=== PATIENT | male | born 1945 | race Caucasian/White ===

== ENCOUNTER → 2017-09-15 16:58 | Outpatient (CLI) | payer MEDICARE, SELFPAY | PROVIDERS: Family Provider Preventive Medicine Occupational Medicine; PCP Preventive Medicine Occupational Medicine; Visit Provider Otolaryngology Otolaryngology/Facial Plastic Surgery | DX: J32.9 Chronic sinusitis, unspecified (principal); J02.9 Acute pharyngitis, unspecified | CPT/HCPCS: 87070 ==

== ENCOUNTER → 2017-12-01 16:16 | Outpatient (CLI) | payer MEDICARE, SELFPAY | PROVIDERS: Family Provider Preventive Medicine Occupational Medicine; PCP Preventive Medicine Occupational Medicine; Visit Provider Otolaryngology Otolaryngology/Facial Plastic Surgery | DX: J32.9 Chronic sinusitis, unspecified (principal) | CPT/HCPCS: 87070; 87077; 87205 ==

== ENCOUNTER → 2018-01-03 10:37 | Outpatient (CLI) | payer MEDICARE, SELFPAY ==
--- NOTE | 2018-01-03 10:44 | MRI_ITS ---
STUDY: MRI BRAIN WITH AND WITHOUT CONTRAST REASON FOR EXAM: Male, 72 years old. Headaches TECHNIQUE: Standardized multiplanar fat and water weighted pulse sequences were obtained. 10 ml of Gadavist contrast material was administered intravenously for the contrast portion of the examination. COMPARISON: None. FINDINGS: The pituitary and pineal regions are normal. The brainstem is normal. The corpus callosum is normal. The 7th and 8th nerve complexes are normal. Both cerebellopontine angles are clear. The cerebellar vermis and lobes are normal. The ventricles, basal cisterns and cortical sulci are normal with no midline shift and no intra or extra-axial hemorrhage or tumor mass. There is no acute infarction. The calvarium is intact. There are no scalp swelling. The vessels at the base of the brain are normal. The orbits, paranasal sinuses and mastoid air cells are normal. Normal size of the ventricles and extra-axial spaces for the patient's age.. MRI/Brain W/WO Contrast IMPRESSION: Normal unenhanced and enhanced MRI of the brain. No acute findings in the brain Electronically Signed: Price Nichole, at 7:05 EDT Tel , Service support ,
[2018-01-03 11:20] LABS: CREATININE FINGERSTICK 0.7 mg/dL (0.70-1.30); EGFR FINGERSTICK > 60.0000 mL/min (>60)
== END ==
PROVIDERS: Family Provider Preventive Medicine Occupational Medicine; PCP Preventive Medicine Occupational Medicine; Visit Provider Otolaryngology
DX: R51 Headache (principal); H53.9 Unspecified visual disturbance; J32.9 Chronic sinusitis, unspecified
CPT/HCPCS: 70553; A9585

== ENCOUNTER → 2018-02-23 06:25 | Outpatient (CLI) | payer MEDICARE, SELFPAY ==
--- NOTE | 2018-02-23 06:34 | CT_ITS ---
STUDY: CT CHEST WITH CONTRAST REASON FOR EXAM: Male, 72 years old. History of a recent diagnosis of a new lung nodule. Former smoker. RADIATION DOSAGE (If Supplied By Facility): CTDIvol = ( 14.55 ) mGy, DLP = ( 610.60 ) mGycm TECHNIQUE: Transaxial imaging was performed following intravenous administration of 100mL ml of Isovue 300 contrast material. Multiplanar coronal and sagittal images were reformatted. Individualized dose optimization techniques were used for this CT. COMPARISON: None. FINDINGS: Small bilateral benign appearing axillary lymph nodes. There is thickening of the left major fissure. Focal linear increased markings in the anterior medial aspect of the left upper lobe. This is suggestive of scarring. There is no demonstrated pleural abnormality. There are calcifications of the coronary arteries. There are multiple small lymph nodes within the mediastinum, which are normal in size and morphology most compatible with reactive lymph hyperplasia. Normal hilar regions. Normal enhanced pulmonary arteries. Normal aorta arch and descending thoracic aorta. There are multi-level degenerative changes of the thoracic spine. There is no demonstrated abnormality of the visualized upper abdomen. CT/Chest WITH Contrast IMPRESSION: Mild increased markings in the anterior medial aspect of the left upper lobe as well as the thickening of the left major fissure. No nodular density is seen. Electronically Signed: Pablo Galan MD at 13:23 EDT Tel [phone], Service support ,
== END ==
PROVIDERS: Family Provider Preventive Medicine Occupational Medicine; PCP Preventive Medicine Occupational Medicine; Referring Provider Internal Medicine Critical Care Medicine; Visit Provider Internal Medicine Critical Care Medicine
DX: R91.1 Solitary pulmonary nodule (principal)
CPT/HCPCS: 71260; Q9967

== ENCOUNTER → 2018-03-16 12:46 | Outpatient (CLI) | payer MEDICARE, SELFPAY ==
--- NOTE | 2018-03-17 06:07 | PFTCOMP_ITS ---
COMPLETE PULMONARY FUNCTION TEST INTERPRETATION Brief HPI: Patient is a 72 year old male, currently under the care of myself, who presents to [facility] [place] for complete pulmonary function tests secondary to diagnosis of lung nodule. Respiratory therapist reports good effort and reproducible results. Interpretation: Forced expiration spirometry shows no large airways obstructive ventilatory defect with an FEV1 of 112% predicted. There is no significant bronchodilator response by strict ATS criteria. Spirograms are of good quality and plateau slowly, indicating slowly emptying areas of the lungs. The respiratory flow volume loop shows decreased expiratory flow rates at high lung volumes consistent with small airways obstruction. Lung volumes by body plethysmography show a normal total lung capacity at 6.17 L, 108% predicted. All other lung volumes are within normal limits. Diffusion capacity by carbon monoxide is elevated at 170% predicted. The airway resistance is normal. No previous pulmonary function tests were available for review. Impression: These pulmonary function tests are within normal limits. There is some subtle signs of possible asthma, but this does not meet diagnostic criteria and a bronchoprovocation study may be indicated.
== END ==
PROVIDERS: Family Provider Preventive Medicine Occupational Medicine; PCP Preventive Medicine Occupational Medicine; Referring Provider Internal Medicine Critical Care Medicine; Visit Provider Internal Medicine Critical Care Medicine
DX: R91.1 Solitary pulmonary nodule (principal)
CPT/HCPCS: 94060; 94726; 94729

== ENCOUNTER → 2018-07-27 14:25 | Outpatient (CLI) | payer MEDICARE, SELFPAY ==
--- NOTE | 2018-07-27 14:28 | RAD_ITS ---
STUDY: X-RAY - RIGHT HAND REASON FOR EXAM: Male, 73 years old. Arthritis TECHNIQUE: 3 view(s) of the hand. COMPARISON: None. FINDINGS: Normal radiocarpal articulation. Normal distal radioulnar joint. Normal visualized carpal bones. There is joint space narrowing of the navicular capitate articulation. There are mild degenerative changes of the first metacarpal greater multangular joint. Normal second through fifth carpometacarpal joints. Normal metacarpi. 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 Normal interphalangeal joint of the thumb. Normal proximal and distal phalanges of the thumb. There are mild degenerative changes of the third and fifth metacarpophalangeal joints. There are mild arthritic changes of the second and fifth DIP joints. Normal phalanges of the second through fifth fingers. The soft tissue structures are unremarkable. RAD/Hand Min 3 Views IMPRESSION: Diffuse degenerative changes as detailed above. Electronically Signed: Benja Stacy MD at 16:28 EST , Service support ,
--- NOTE | 2018-07-27 14:28 | RAD_ITS ---
STUDY: X-RAY - LEFT HAND REASON FOR EXAM: Male, 73 years old. Arthritis TECHNIQUE: 3 view(s) of the hand. COMPARISON: None. FINDINGS: Normal radiocarpal articulation. Normal distal radioulnar joint. Normal visualized carpal bones. There are degenerative changes of the greater multangular navicular joint. There are moderately severe degenerative changes of the first metacarpal greater multangular joint. There are degenerative changes of the second metacarpophalangeal joint. Normal metacarpi. 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 Normal interphalangeal joint of the thumb. There is status post amputation changes of the third distal phalanx. Normal metacarpophalangeal joints of the second through fifth fingers. Normal proximal and distal interphalangeal joints of the second through fifth fingers. The soft tissue structures are unremarkable. RAD/Hand Min 3 Views IMPRESSION: Diffuse degenerative changes as detailed above. Status post amputation of the third distal phalanx. Electronically Signed: Benja Stacy MD at 16:30 EST , Service support ,
[2018-07-27 16:16] LABS: ALB/GLOB Ratio 1.1 RATIO (0.9-2.4); AST(SGOT) 23 U/L (15-37); Absolute Lymphocyte Count 1.28 X10^3/ul (0.83-4.51); Absolute Neutrophil Count 3.4 X10^3/uL (2.0-7.7); Alanine Aminotransfer ALT/SGPT 27 U/L (16-61); Albumin, Serum 3.7 g/dL (3.2-5.0); Alkaline Phosphatase 77 U/L (45-117); Anion Gap 5 (5-15); BUN 19 mg/dL (7-18); BUN/Creat Ratio 18.1 RATIO (10-20); Basophil# 0.03 X10^3/uL; Basophil% 0.5 % (0-1); CRP < 2.90 mg/L (0.0-3.0); Calcium,Total 8.6 mg/dL (8.5-10.1); Chloride 108 mmol/L (98-107); Creatinine, Serum 1.05 mg/dL (0.70-1.30); EST Glomerular Filtration Rate 73 mL/min (>60); Eosinophil# 0.18 X10^3/uL; Eosinophils% 3.3 % (0-5); Est Glom Filt Rate - Afr Amer 89 mL/min (>60); Globulin 3.5 g/dL (2.2-4.2); Glucose 93 mg/dL (74-106); Hematocrit 43.4 % (40-54); Hemoglobin 14.3 g/dl (13.0-16.5); Lymphocyte # 1.28 X10^3/ul (4.0); Lymphocyte % 23.4 % (19-41); Mean Corp Hgb Conc 32.9 g/gl (32-36); Mean Corpuscular Hgb 30.4 pg (27.0-32.0); Mean Corpuscular Volume 92.3 fL (80-94); Mean Platelet Vol. 10.6 fl (6.2-12.0); Monocyte# 0.59 X10^3/uL; Monocyte% 10.8 % (0-10); Neutrophil # 3.37 X10^3/uL (2.7-7.7); Neutrophil % 61.8 % (47-70); Platelet Count 197 K/mm3 (150-450); Potassium 4.4 mmol/L (3.5-5.1); Protein, Total 7.2 g/dL (6.4-8.2); RBC Distribution Width CV 13.3 % (11.6-14.6); RBC Distribution Width SD 44.8 fl (35.1-43.9); Rheumatoid Factor < 10.0 IU/mL (<15); Sodium Level 143 mmol/L (136-145); White Blood Count 5.5 K/mm3 (4.4-11.0)
[2018-07-27 16:26] LABS: POSITIVE COUNT NO; POSITIVE DIFFERENTIAL NO; POSITIVE MORPHOLOGY NO
[2018-07-27 16:33] LABS: Erythrocyte Sedimentation Rate 3 mm/hr (0-20)
[2018-07-30 17:10] LABS: SJOGREN'S Anti-SS-A test < 0.2 AI (0.0-0.9); SJOGREN'S Anti-SS-B test < 0.2 AI (0.0-0.9)
[2018-08-01 10:50] LABS: CCP IgG Antibodies 35 units (0-19); HEPATITIS B SURFACE AG Negative (Negative); Hep B Surface Antibodies Non Reactive (.); Hep C Antibodies <0.1 s/co ratio (0.0-0.9)
[2018-08-01 12:18] LABS: ANTINUCLEAR ANTIBODIES DIRECT Negative (Negative)
== END ==
PROVIDERS: Family Provider Preventive Medicine Occupational Medicine; PCP Preventive Medicine Occupational Medicine; Referring Provider Internal Medicine Rheumatology; Visit Provider Internal Medicine Rheumatology
DX: M06.4 Inflammatory polyarthropathy (principal); G25.81 Restless legs syndrome; F41.9 Anxiety disorder, unspecified; I10 Essential (primary) hypertension; E78.5 Hyperlipidemia, unspecified; M19.042 Primary osteoarthritis, left hand; M19.041 Primary osteoarthritis, right hand
CPT/HCPCS: 36415; 73130; 80053; 85025; 85652; 86038; 86140; 86200; 86235; 86431; 86706; 86803; 87340

== ENCOUNTER → 2019-03-06 14:09 | Outpatient (CLI) | payer MEDICARE, SELFPAY ==
[2019-03-06 13:30] VITALS: BMI 31.1
--- NOTE | 2019-03-06 14:15 | RAD_ITS ---
STUDY: X-RAY CHEST REASON FOR EXAM: Male, 73 years old. Dyspnea TECHNIQUE: Frontal and lateral views COMPARISON: October 28, 2014 FINDINGS: The lungs are clear and expanded. There is no demonstrated pleural abnormality. Normal size heart. Normal mediastinum and yahir. Normal visualized pulmonary arteries. Normal visualized aortic arch and descending thoracic aorta. Degenerative changes of the thoracic spine. Normal visualized ribs, clavicles, and shoulders. There is no demonstrated abnormality of the visualized soft tissue structures of the upper abdomen. RAD/Chest PA and Lateral IMPRESSION: Normal x-ray examination of the chest. Electronically Signed: Cosme Hammond DO at 19:34 EDT Tel [phone], Service support ,
[2019-03-06 15:20] LABS: Absolute Lymphocyte Count 1.36 X10^3/uL (0.83-4.51); Absolute Neutrophil Count 3.7 X10^3/uL (2.0-7.7); Basophil# 0.04 X10^3/uL; Basophil% 0.7 % (0-1); Eosinophil# 0.22 X10^3/uL; Eosinophils% 3.7 % (0-5); Hematocrit 44.5 % (40-54); Hemoglobin 14.8 g/dL (13.0-16.5); Lymphocyte # 1.36 X10^3/ul (4.0); Mean Corp Hgb Conc 33.3 g/dL (32-36); Mean Corpuscular Hgb 31.2 pg (27.0-32.0); Mean Corpuscular Volume 93.7 fL (80-94); Mean Platelet Vol. 10.5 fl (6.2-12.0); Monocyte# 0.62 X10^3/uL; Monocyte% 10.5 % (0-10); NRBC Flagged by Analyzer 0 % (0-5); Neutrophil # 3.65 X10^3/uL (2.7-7.7); Neutrophil % 61.8 % (47-70); Platelet Count 200 K/mm3 (150-450); RBC Distribution Width CV 12.7 % (11.6-14.6); RBC Distribution Width SD 43.9 fl (35.1-43.9); Red Blood Count 4.75 M/mm3 (4.6-6.2); White Blood Count 5.9 K/mm3 (4.4-11.0)
[2019-03-06 15:52] LABS: Anion Gap 4 (5-15); BUN 16 mg/dL (7-18); BUN/Creat Ratio 16.9 RATIO (10-20); Calcium,Total 8.8 mg/dL (8.5-10.1); Chloride 107 mmol/L (98-107); Creatinine, Serum 0.94 mg/dL (0.70-1.30); EST Glomerular Filtration Rate 83 mL/min (>60); Est Glom Filt Rate - Afr Amer 100 mL/min (>60); Glucose 95 mg/dL (74-106); Potassium 4.4 mmol/L (3.5-5.1); Sodium Level 142 mmol/L (136-145)
== END ==
PROVIDERS: Family Provider Preventive Medicine Occupational Medicine; PCP Preventive Medicine Occupational Medicine; Referring Provider Physician Assistant Medical; Visit Provider Physician Assistant Medical
DX: I11.9 Hypertensive heart disease without heart failure (principal); I25.10 Atherosclerotic heart disease of native coronary artery without angina pectoris; E78.5 Hyperlipidemia, unspecified; R06.00 Dyspnea, unspecified
CPT/HCPCS: 36415; 71046; 80048; 83880; 84443; 85025

== ENCOUNTER → 2019-03-12 05:30 | Outpatient (CLI) | payer MEDICARE, SELFPAY ==
[2019-03-06 13:30] VITALS: BMI 31.1
--- NOTE | 2019-03-12 13:54 | STRESSREP_ITS ---
Stress Test Report Date: 03-12-19 Procedure: Exercise tolerance test/imaging study Indications: Shortness of breath/dyspnea; fatigue; preoperative cardiovascular evaluation Consent: Per the patient Procedure: The patient exercised on a Alton protocol for 10 minutes completing Stage III and 1 minute of Stage IV achieving a peak heart rate of 150 bpm (103 % predicted maximal heart rate) with a peak blood pressure 164/60 mmHg and a peak MET capacity of 11 METs. The baseline ECG demonstrated normal sinus rhythm. The peak exercise ECG demonstrated somatic/motion artifact with no obvious ECG changes. There were no cardiac dysrhythmias pretest, during exercise, or recovery. The functional capacity was considered good. There was no complaint of chest discomfort during exercise or recovery. The examination was discontinued secondary to dyspnea. Impression: 1. Technically adequate (percent predicted maximal heart rate greater than 85%) exercise tolerance test 2. Peak exercise ECG with somatic/motion artifact with no obvious ECG changes 3. There were no cardiac dysrhythmias pretest, during exercise, or recovery 4. Nuclear images pending Myocardial perfusion imaging study: Technique: The patient was injected with 11.0 mCi of technetium 99m Cardiolite and subsequently rest SPECT Cardiolite nuclear imaging was obtained in the hori zontal long, vertical long, and short axis views. The patient exercised on a Alton protocol for 10 minutes completing Stage III and 1 minute of Stage IV achieving a peak heart rate of 150 bpm (103 % predicted maximal heart rate) with a peak blood pressure 164/60 mmHg and a peak MET capacity of 11 METs. The patient was injected with 33.0 mCi of technetium 99m Cardiolite and subsequently stress SPECT Cardiolite nuclear imaging was obtained in the horizontal long, vertical long, and short axis views. A gated Cardiolite study at peak stress was obtained. Interpretation: Rest and stress SPECT Cardiolite nuclear imaging status post realignment, normalization, and attenuation correction, demonstrates at rest the appearance of subtle diminished tracer uptake in portions of the distal anterolateral segments which appears to improve and/or normalize following stress. There is end systolic thickening and brightening. The gated Cardiolite study demonstrates myocardial thickening and inward wall motion. The reported LVEF is 63 %. Impression: 1. Rest and stress SPECT Cardiolite nuclear imaging demonstrate myocardial perfusion changes at rest which appear to improve and/or normalize following stress appearing compatible with shifting soft tissue attenuation/artifact with no myocardial perfusion changes considered diagnostic for associated stress- induced myocardial ischemia. 2. The gated Cardiolite study reports an LVEF of 63 %. This note was generated with [employer] software. It may contain incorrect words, spelling, and punctuation that were not noted in checking the note before signing.
== END ==
PROVIDERS: Family Provider Preventive Medicine Occupational Medicine; PCP Preventive Medicine Occupational Medicine; Referring Provider Physician Assistant Medical; Visit Provider Physician Assistant Medical
DX: I25.10 Atherosclerotic heart disease of native coronary artery without angina pectoris (principal); E78.5 Hyperlipidemia, unspecified; R06.00 Dyspnea, unspecified; I11.9 Hypertensive heart disease without heart failure
CPT/HCPCS: 78452; 93017; A9500; A4216

== ENCOUNTER → 2019-11-18 07:00 | Outpatient (CLI) | payer MEDICARE, SELFPAY ==
[2019-11-13 14:04] VITALS: BMI 31.1
--- NOTE | 2019-11-18 07:02 | RAD_ITS ---
STUDY: X-RAY CHEST REASON FOR EXAM: Male, 74 years old. PRE HEART CATH -- DENIES ANY BREATHING PROBLEMS TECHNIQUE: PA and lateral views of the chest. COMPARISON: 03/06/2019 FINDINGS: The lungs are clear and expanded. There is no demonstrated pleural abnormality. Normal size heart. Normal mediastinum and yahir. Normal visualized pulmonary arteries. Normal visualized aortic arch and descending thoracic aorta. Normal visualized thoracic spine. Normal visualized ribs, clavicles, and shoulders. There is no demonstrated abnormality of the visualized soft tissue structures of the upper abdomen. RAD/Chest PA and Lateral IMPRESSION: No acute pulmonary process, no interval change Electronically Signed: Cj Reyes MD at 7:48 EDT , Service support ,
[2019-11-18 07:19] LABS: Absolute Lymphocyte Count 0.95 X10^3/uL (0.83-4.51); Absolute Neutrophil Count 3.8 X10^3/uL (2.0-7.7); Basophil# 0.04 X10^3/uL; Basophil% 0.7 % (0-1); Eosinophil# 0.19 X10^3/uL; Eosinophils% 3.5 % (0-5); Hematocrit 42.3 % (40-54); Hemoglobin 14.2 g/dL (13.0-16.5); Lymphocyte # 0.95 X10^3/ul (4.0); Lymphocyte % 17.4 % (19-41); Mean Corp Hgb Conc 33.6 g/dL (32-36); Mean Corpuscular Hgb 31.3 pg (27.0-32.0); Mean Corpuscular Volume 93.2 fL (80-94); Monocyte# 0.45 X10^3/uL; Monocyte% 8.2 % (0-10); NRBC Flagged by Analyzer 0 % (0-5); Neutrophil # 3.83 X10^3/uL (2.7-7.7); Platelet Count 202 K/mm3 (150-450); RBC Distribution Width CV 13.5 % (11.6-14.6); RBC Distribution Width SD 46.3 fl (35.1-43.9); Red Blood Count 4.54 M/mm3 (4.6-6.2); White Blood Count 5.5 K/mm3 (4.4-11.0)
[2019-11-18 07:45] LABS: Anion Gap 5 (5-15); BUN 23 mg/dL (7-18); BUN/Creat Ratio 23.4 RATIO (10-20); Calcium,Total 8.6 mg/dL (8.5-10.1); Chloride 109 mmol/L (98-107); Creatinine, Serum 0.98 mg/dL (0.70-1.30); EST Glomerular Filtration Rate 79 mL/min (>60); Est Glom Filt Rate - Afr Amer 95 mL/min (>60); Glucose 96 mg/dL (74-106); Potassium 3.7 mmol/L (3.5-5.1); Sodium Level 141 mmol/L (136-145)
[2019-11-18 08:08] LABS: International Normalized Ratio 1.1; Prothrombin Time (Protime)PT. 13.2 SECONDS (11.7-14.9)
== END ==
PROVIDERS: PCP Preventive Medicine Occupational Medicine; Referring Provider Nurse Practitioner Family; Visit Provider Nurse Practitioner Family
DX: Z01.810 Encounter for preprocedural cardiovascular examination (principal); E78.5 Hyperlipidemia, unspecified; I25.10 Atherosclerotic heart disease of native coronary artery without angina pectoris; I11.9 Hypertensive heart disease without heart failure
CPT/HCPCS: 36415; 71046; 80048; 85025; 85610

== ENCOUNTER 2019-11-22 08:52 | Day surgery (SDC) | payer MEDICARE, SELFPAY ==
[2019-11-13 14:04] VITALS: BMI 31.1
[2019-11-21 11:39] VITALS: BMI 31.1
--- NOTE | 2019-11-22 08:01 | PCM.HP.BLA ---
History and Physical Date of Admission: 11/22/19 [facility] [address] [place], [place] [address] OFFICE VISIT Date of Service: 11/13/19 MR#: [id number] Acct: [id number] Name: PAULINE JUSTIN Rep #: [id number] : 1945 Provider: JIMMY Grace Age/Sex: 74/M Location: [facility] Status: Signed HPI HPI History of Present Illness Details: This is a 74-year-old gentleman that presents here today for a cardiovascular outpatient follow-up. He has a history of coronary artery disease, diastolic dysfunction, hypertension and hyperlipidemia. He states when he is doing something strenuous it feels like his blood pressure is going up. This occurs when walking up hill. He denies such symptoms when on stationary bike for 20-30 minutes. He does not notice such symptoms when lifting weights. This is slightly improved since August 2019. He states on episode of fluttering that occurred in the evening. He states this was associated fatigue. He states over the last year he has noted increase in fatigue. He states feeling lightheaded or woozy. He states ongoing bilateral lower extremity edema. His PCP checks his Lipids. He denies chest, arm, jaw, or neck discomfort. His exercise tolerance is stable. He denies symptoms of dizziness, near syncope, or syncopal episodes. He denies claudication issues. He denies orthopnea, PND, fever, chills, chronic cough, blood in urine, blood in stool, or myalgia Intake Vital Signs 11/13/19 Height 5 ft 6 in 11/13/19 Weight: 193 lb 11/13/19 BMI 31.1 11/13/19 BP 135/76 H 11/13/19 Blood Pressure Location Lt brachial 11/13/19 Position Sitting 11/13/19 Respiration 18 11/13/19 Pulse 74 11/13/19 Pulse Source Monitor 11/13/19 Pulse Oximetry (%) 95 Intake Visit Reasons: 2 M FU/coming in [employer] Required: No Is patient in pain?: No Allergies Sulfa (Sulfonamide Antibiotics) Allergy (Unknown, Verified 11/13/19 14:11) Unknown atorvastatin Adverse Reaction (Severe, Verified 11/13/19 14:11) myalgias Medications trazodone 150 mg tablet 150 mg PO QDAY 10/16/17 [History Confirmed 11/13/19] pravastatin 80 mg tablet 80 mg PO QDAY #90 tab 05/01/18 [Rx Confirmed 11/13/19] aspirin 81 mg tablet,delayed release 81 mg PO QDAY #90 tab 06/04/18 [Rx Confirmed 11/13/19] clonazepam 0.5 mg tablet 0.5 mg PO DAILY tab 03/04/19 [History Confirmed 11/13/19] hydrocodone 5 mg-acetaminophen 325 mg tablet 1 tab PO DAILY PRN tab 03/04/19 [History Confirmed 11/13/19] lisinopril 40 mg tablet 40 mg PO DAILY 03/04/19 [History Confirmed 11/13/19] ropinirole 0.5 mg tablet 0.5 mg PO DAILY tab 03/04/19 [History Confirmed 11/13/19] amlodipine 5 mg tablet 10 mg PO QDAY tab 03/06/19 [History Confirmed 11/13/19] cholecalciferol (vitamin D3) 25 mcg (1,000 unit) capsule 25 mcg PO DAILY 09/13/19 [History Confirmed 11/13/19] meloxicam 7.5 mg tablet 7.5 mg PO DAILY PRN 09/13/19 [History Confirmed 11/13/19] folic acid 1 mg tablet 1 mg PO DAILY 11/13/19 [History Confirmed 11/13/19] methotrexate sodium 2.5 mg tablet 2.5 mg PO QWEEK 11/13/19 [History Confirmed 11/13/19] PFSH Social History (Updated 11/14/19 @ 13:29 by Pauline Grace NP-C) Smoking Status: Former smoker quit date: 05/29/73 pack-years: 60 alcohol intake: never substance use type: does not use ROS Const Const: Positive for fatigue; negative for weakness, body ache, fever(s) or chills ENT ENT: Negative for dizziness Cardio Chest Pain: No Palpitations: No Edema: None Muscle aches with walking: None Resp Respiratory: Positive for SOB with activity; negative for SOB at rest, SOB orthopnea\SOB lying down or paroxysmal nocturnal dyspnea GI GI: Negative nausea, vomiting blood/hematemesis, bright, red blood in stools or black,tarry stools : Negative for hematuria or frequent nighttime urination/ nocturia Musc Musc: Positive for joint pain (knee); negative for muscle aches/ myalgia Skin Skin: Negative non-healing lesions or rash Neuro Neuro: Positive for lightheadedness; negative for dizziness, near syncope, syncope, orthostatic symptoms or weakness Endo Endo: Positive for fatigue Allergy Allergy/Immunology: Negative for rash Cardiology Exam Const Appearance: cooperative, healthy appearing, comfortable and no acute distress Nutritional Appearance: well nourished and obese Orientation: alert, awake and oriented x3 Head Head: normal to inspection Ears: hearing grossly normal bilaterally Nose: external nose normal Face and Sinus: face symmetric Mouth: oral mucosae normal Eyes General: appearance normal, both eyes and all related structures Eyelids: eyelids normal EOM: EOM intact bilaterally Neck Neck: normal visual inspection and no JVD Carotids: normal carotid upstroke Chest Chest inspection: normal inspection of the chest, symmetric chest movement and normal respiratory effort; negative cough Auscultation: Bilateral: Clear to Auscultation Cardio Rate: regular rate Rhythm: regular rhythm Heart sounds: S1 normal and S2 normal; negative rub, gallop or murmur GI GI: normal to inspection and obese Neuro General: alert, awake, oriented x3 and CN's II-XI intact bilaterally Skin Skin: no rashes or lesions noted Extremities Pulses: Normal: Right Posterior Tibial Pulse, Left Posterior Tibial Pulse, Right Radial Pulse, Left Radial Pulse Lower Extremity Edema: None: Bilateral Psych Psychological: normal affect Assessment & Plan 1. Atherosclerosis of [place] coronary artery of [place] heart without angina pectoris I25.10 Plan Patient underwent stress test on 03/12/2019 that was negative for stress-induced myocardial ischemia. The exact etiology of his shortness of breath or blood pressure going up sensation is unclear. This is associated with ongoing fatigue. Given his multiple risk factors for coronary artery disease, it will be confirmed with Dr. Albert in regards to proceeding with heart catheterization to further assess progression of mild to moderate disease noted in 2010 at [facility] as a contributory source of his symptoms. Patient states that he is suspicious for heart disease progression and is willing to proceed with heart catheterization despite stress test in February 2019 being negative. Patient was informed that if heart catheterization is pursued, he will need to begin Plavix therapy. He is agreeable to this approach. Other possible testing may include repeat echocardiogram or tighter blood pressure control to improve symptoms. 2. Diastolic dysfunction I51.89 Plan His most recent echocardiogram in July 2014 showed ejection fraction of 60%. He does not appear to be in a fluid volume overload state on exam. Will consider repeat echocardiogram based on results of heart catheterization. He will continue with lisinopril therapy. 3. Essential (primary) hypertension I10 Plan Patient's blood pressure is well-controlled. During his stress test in February 2019 his peak blood pressure was noted be systolic 164/60. We will continue to monitor. We will not make any medication regimen changes at this time. 4. Hyperlipidemia, unspecified hyperlipidemia type E78.5 Plan Lipid panel from 04/23/2018 showed cholesterol: 186, HDL: 111, HDL: 59, and triglycerides: 81. Lipid panel from 10/22/2019 showed cholesterol: 182, triglycerides: 59, HDL: 56, and LDL: 114. He will continue with high-dose statin medication. Plan Detail Additional Comments Thank you for allowing us to participate in the patients plan of care, if you have any questions please do not hesitate to call. This note was generated using a voice recognition system and there may be incorrect words, spelling or punctuation that were not noted when reviewing the office note prior to saving. Follow Up 6 Months (PFM) Coding Level of Care Code Off vis,est,level 3 Diagnoses Atherosclerosis of [place] coronary artery of [place] heart without angina pectoris I25.10 ??[place] vs. transplanted heart: [place] heart Diastolic dysfunction I51.89 Essential (primary) hypertension I10 Hyperlipidemia, unspecified hyperlipidemia type E78.5 ??Hyperlipidemia type: unspecified Coding Level of Care Code Off vis,est,level 3 Diagnoses Atherosclerosis of [place] coronary artery of [place] heart without angina pectoris I25.10 ??[place] vs. transplanted heart: [place] heart Diastolic dysfunction I51.89 Essential (primary) hypertension I10 Hyperlipidemia, unspecified hyperlipidemia type E78.5 ??Hyperlipidemia type: unspecified Supplemental Info Supplemental Information He did have a transthoracic echocardiogram performed on 08/07/2014. The results are as noted below. Interpretation Summary The study was technically difficult. Left ventricular systolic function is normal. The estimated ejection fraction is 60 %. Trivial mitral valve insufficiency. Trivial tricuspid valve insufficiency. Mild focal aortic valve calcification. Right ventricular systolic pressure estimated to be 28 mmHg. He had an exercise tolerance test performed on 02/14/2017. The results are as noted below. Procedure: The patient exercised on a Alton protocol for 10 minutes 30 seconds completing stage III and 1 minute 30 seconds of stage IV achieving a peak heart rate of 153 bpm (104% predicted maximal heart rate) with a peak blood pressure 178/80 mmHg and a peak MET capacity of 12 MET's. The baseline ECG demonstrated normal sinus rhythm. The peak exercise ECG demonstrated beat to beat nonspecific ST segment abnormality with approximately 0.5-1.[address] segment depression in leads II, III, aVF, and V4 through V6 with resolution towards baseline beginning less than 1 minute recovery. There was a rare PAC during exercise and a rare PVC during recovery. The functional capacity was considered good. The patient had no complaint of chest discomfort during exercise or recovery. The examination was discontinued secondary to dyspnea. Impression: 1. Technically adequate (percent predicted maximal heart rate greater than 85%) exercise tolerance test 2. Peak exercise ECG with beat to beat nonspecific ST segment abnormality with approximately 0.5-1.[address] segment depression in leads II, III, aVF, and V4 through V6 with resolution towards baseline beginning less than 1 minute recovery 3. Rare PAC during exercise and rare PVC during recovery 4. Nuclear images pending Myocardial perfusion imaging study: Technique: The patient was injected with 11.1 mCi of technetium 99m Cardiolite and subsequently rest SPECT Cardiolite nuclear imaging was obtained in the horizontal long, vertical long, and short axis views. The patient exercised on a Alton protocol for 10 minutes 30 seconds completing stage III and 1 minute 30 seconds of stage IV achieving a peak heart rate of 153 bpm (104% predicted maximal heart rate) with a peak blood pressure 178/80 mmHg and a peak MET capacity of 12 MET's. The patient was injected with 33.7 mCi of technetium 99m Cardiolite and subsequently stress SPECT Cardiolite nuclear imaging was obtained in the horizontal long, vertical long, and short axis views. A gated Cardiolite study at peak stress was obtained. Interpretation: And stress SPECT Cardiolite nuclear imaging status post realignment, normalization, and attenuation correction, demonstrates the appearance of relative uniform tracer uptake and myocardial perfusion appearing within normal limits. There is end systolic thickening and brightening. The gated Cardiolite study demonstrates myocardial thickening and inward wall motion. The reported LVEF is 66%. Impression: 1. Rest and stress SPECT Cardiolite nuclear imaging demonstrates the appearance of relative uniform tracer uptake and myocardial perfusion appearing within normal limits. 2. The gated Cardiolite study reports an LVEF of 66%. He had a previous diagnostic cardiac catheterization performed at [facility] [place] in [place], [place] on 09/27/2010. The results are as noted below. ASSESSMENT: 1 Mild to moderate coronary atherosclerosis, more evident of the right coronary artery. 2. Preserved left ventricular systolic function. 3. Diastolic dysfunction, very mildly over the left ventricular filling pressures. Stress Test Report Date: 03-12-19 Procedure: Exercise tolerance test/imaging study Indications: Shortness of breath/dyspnea; fatigue; preoperative cardiovascular evaluation Consent: Per the patient Procedure: The patient exercised on a Alton protocol for 10 minutes completing Stage III and 1 minute of Stage IV achieving a peak heart rate of 150 bpm (103 % predicted maximal heart rate) with a peak blood pressure 164/60 mmHg and a peak MET capacity of 11 METs. The baseline ECG demonstrated normal sinus rhythm. The peak exercise ECG demonstrated somatic/motion artifact with no obvious ECG changes. There were no cardiac dysrhythmias pretest, during exercise, or recovery. The functional capacity was considered good. There was no complaint of chest discomfort during exercise or recovery. The examination was discontinued secondary to dyspnea. Impression: 1. Technically adequate (percent predicted maximal heart rate greater than 85%) exercise tolerance test 2. Peak exercise ECG with somatic/motion artifact with no obvious ECG changes 3. There were no cardiac dysrhythmias pretest, during exercise, or recovery 4. Nuclear images pending Myocardial perfusion imaging study: Technique: The patient was injected with 11.0 mCi of technetium 99m Cardiolite and subsequently rest SPECT Cardiolite nuclear imaging was obtained in the horizontal long, vertical long, and short axis views. The patient exercised on a Alton protocol for 10 minutes completing Stage III and 1 minute of Stage IV achieving a peak heart rate of 150 bpm (103 % predicted maximal heart rate) with a peak blood pressure 164/60 mmHg and a peak MET capacity of 11 METs. The patient was injected with 33.0 mCi of technetium 99m Cardiolite and subsequently stress SPECT Cardiolite nuclear imaging was obtained in the horizontal long, vertical long, and short axis views. A gated Cardiolite study at peak stress was obtained. Interpretation: Rest and stress SPECT Cardiolite nuclear imaging status post realignment, normalization, and attenuation correction, demonstrates at rest the appearance of subtle diminished tracer uptake in portions of the distal anterolateral segments which appears to improve and/or normalize following stress. There is end systolic thickening and brightening. The gated Cardiolite study demonstrates myocardial thickening and inward wall motion. The reported LVEF is 63 %. Impression: 1. Rest and stress SPECT Cardiolite nuclear imaging demonstrate myocardial perfusion changes at rest which appear to improve and/or normalize following stress appearing compatible with shifting soft tissue attenuation/artifact with no myocardial perfusion changes considered diagnostic for associated stress-induced myocardial ischemia. 2. The gated Cardiolite study reports an LVEF of 63 %. He also had a Holter monitor performed through [facility] on 11/24/2010. The summary is as noted below. SUMMARY; The patient underwent 24 hours of Holter monitoring for evaluation of palpitations. The patient has no evidence of conduction system disease. The patient has in significant atrial and ventricular ectopy, The patient did not complain of any symptoms during hi recording and thus no cause for palpitations can be determined with certainty. Cardiac catheterization: 09-27-2010: [facility], [place]: [place], [place] ASSESSMENT: 1 Mild to moderate coronary atherosclerosis, more evident of the right coronary artery. 2. Preserved left ventricular systolic function. 3. Diastolic dysfunction, very mildly over the left ventricular filling pressures. Diagnostics Stress Test Nuclear Medicine 03/12/19 Stress Test 03/12/19 Chest X-Ray 03/06/19 Pulmonary Pulmonary Function Test 03/17/18 11/14/19 1330 <Electronically signed by Pauline MARQUEZ> Date Pauline MARQUEZ Cosigner Signature: Date (if applicable) CC: Dr. Afshin Montalvo, DO ~ I have re-examined the patient. There are no clinical changes since date of exam. Procedure Criteria Procedure Type: Elective COVID Risk Discussion: The surgeon/proceduralist and patient have discussed in detail the risk of exposure to and/or potential harm posed by the COVID-19 virus with having a surgery/procedure at this time versus the risk of delaying the surgery/procedure. It is not possible to know either the risk of delaying the surgery or procedure or chance of getting an infection with perfect accuracy, but a joint decision was made between the patient and the surgeon/proceduralist to proceed at this time with the scheduled surgery/procedure as indicated on the consent form.
--- NOTE | 2019-11-22 11:42 | CL.D_ITS ---
Patient Name: PAULINE JUSTIN Study Date: 11/22/2019 Performing: Dre Albert MD Ht: 66.14 inches 168 cm : 1945 Wt: 194.01 lbs 88 kg Age: 74 Gender: male BSA: 1.98 PROCEDURE(S) PERFORMED NB21-LXH/COR/LV CLINICAL PROFILE AND INDICATIONS Indications: Suspected CAD Heart Failure: None Stress/Imaging Date: 03/12/2020Stress Test with SPECT MPI: Negative Angina Classification Anginal Classification w/in 2 Weeks: CCS II CAD Presentations: Other: prgressive fatigue CONCLUSIONS Normal Left Ventricular End Diastolic Pressure Normal LV size, wall motion,and systolic function LVEF: by LV gram 70 % [place] Multivessel CAD RECOMMENDATIONS Risk factor modification Medical therapy Outpatient ETT/Imaging Study DESCRIPTION OF PROCEDURE The patient arrived to the procedure lab. The risks and benefits of the procedure as well as a full d escription of our services here and current unavailability of surgical backup were fully explained to the patient and/or their significant other prior to the catheterization. The Timeout was completed, verifying the correct patient and procedure. The patient's procedural site was prepped and draped in the usual fashion. Local anesthetic was given subcutaneously to right radial region with Lidocaine 2% . Using a modified Seldinger technique, arterial access was obtained via the right radial artery, a 6 Fr sheath was inserted. Right Coronary Artery selective angiography was then performed in multiple v iews using a 5 Fr. 4.0 Gilbert catheter. Left Coronary Artery selective angiography was performed in mu ltiple views using a 5 Fr. 4.0 Gilbert catheter. Left Ventriculography was performed in HUFF projection using a 5 Fr. Pigtail catheter. LV to AO pullback pressures were then recorded.The arterial sheath was pulled and a TR Band was applied for hemostasis-12cc air CORONARY ANGIOGRAPHY DOMINANCE: Right Dominant LEFT HEART ASSESSMENT Left Ventricular Ejection Fraction: by LV Gram 70 % Normal LV wall motion Normal Left Ventricular End Diastolic Pressure LVEDP: 8 mmHg LEFT MAIN: Angiographically normal LEFT ANTERIOR DESCENDING ARTERY: Mild luminal irregularities PROX LAD: Mild calcification DIAGONAL 1: Ostial - 50 % Stenosis CIRCUMFLEX ARTERY: PROX CIRC: Mild calcification, Mild luminal irregularities RIGHT CORONARY ARTERY: large; ectatic; dominant vessel Mild luminal irregularities PROX RCA: 50 % Stenosis MID RCA: 50 % Stenosis DISTAL RCA: 50 % Stenosis RT PDA: Proximal - Mild luminal irregularities, Mid - Mild luminal irregularities, Distal - Mild mayra nal irregularities, Mid - 10 - 25 % Stenosis, Distal - 10 - 25 % Stenosis RIGHT AV SEGMENT: Mild luminal irregularities AORTIC ROOT: Angiographically normal COMPLICATIONS No Complications PROCEDURE MEDICATIONS Fentanyl 50 mcg IV Versed 1 mg IV Oxygen: 2 L/min via nasal cannula Baby Aspirin (81mg) 1 Tabs PO @ 11/22/2019 09:28:05 Heparin diluted in 23cc Heparinized saline. Patient given 10cc IA of this solution. 11/22/2019 10:51: 59 Plavix 75 mg PO 11/22/2019 09:28:21 Verapamil 2.5mg, Ntg 100mcgs, 2000 units of Heparin diluted in 23cc Heparinized saline. Patient give n 10cc IA of this solution. 11/22/2019 10:51:59 SUMMARY OF HEMODYNAMIC DATA Time AIR REST ECG 09:31:02 LV 131/-15, 9 11:02:06 LV 132/-15, 8 11:02:13 LV 125/-12, 11 11:03:12 LVp 128/-5, 10 11:03:25 AOp 124/56 (85) 11:03:30 AO 123/49 (77) SA 11:04:49 Signed By Dre Albert MD On 11/22/2019 11:42:16 Dre Albert MD
== END 2019-11-22 13:10 | disposition home or self-care (01) ==
PROVIDERS: PCP Preventive Medicine Occupational Medicine; Referring Provider Internal Medicine Cardiovascular Disease; Visit Provider Internal Medicine Cardiovascular Disease
DX: I25.10 Atherosclerotic heart disease of native coronary artery without angina pectoris (principal); I10 Essential (primary) hypertension; E78.5 Hyperlipidemia, unspecified; Z79.899 Other long term (current) drug therapy; Z79.02 Long term (current) use of antithrombotics/antiplatelets; Z79.82 Long term (current) use of aspirin; Z87.891 Personal history of nicotine dependence; R06.02 Shortness of breath
CPT/HCPCS: 93458; 99152; 99153; J7040; C1769; C1894; Q9967

== ENCOUNTER → 2019-12-17 06:07 | Outpatient (CLI) | payer MEDICARE, SELFPAY ==
[2019-11-21 11:39] VITALS: BMI 31.1
--- NOTE | 2019-12-17 08:02 | STRESSREP_ITS ---
Stress Test Report Date: 12-17-2019 Procedure: Pharmacologic stress nuclear imaging study Indications: Chest discomfort; CAD Consent: Per the patient Procedure: The patient underwent pharmacologic (Regadenoson) evaluation with a peak heart rate of 85 beats per minute (59 %predicted maximal heart rate) and a peak blood pressure of 138/70 mmHg. The baseline ECG demonstrated sinus rhythm. The peak pharmacologic ECG demonstrated no obvious ECG changes. There were no cardiac dysrhythmias pretest, during pharmacologic infusion, or recovery. There was no complaint of chest discomfort during pharmacologic infusion or recovery. The examination was discontinued secondary to completion of protocol. Impression: 1. Pharmacologic (Regadenoson) evaluation 2. Peak pharmacologic ECG with no obvious ECG changes. 3. There were no cardiac dysrhythmias pretest, during pharmacologic infusion, or recovery. 4. Nuclear images pending Myocardial perfusion imaging study: Technique: The patient was injected with 11.8 millicuries of technetium 99m Cardiolite and subsequently rest SPECT Cardiolite nuclear imaging was obtained in the horizontal long, vertical long, and short axis views. The patient underwent pharmacologic (Regadenoson) evaluation with a peak heart rate of 85 beats per minute (59 % percent predicted maximal heart rate) and a peak blood pressure of 138/70 mmHg. The patient was injected with 35.7 millicuries of technetium 99m Cardiolite and subsequently stress SPECT Cardiolite nuclear imaging was obtained in the horizontal long, vertical long, and short axis views. A gated Cardiolite study at peak stress was obtained. Interpretation: Rest and stress SPECT Cardiolite nuclear imaging status post realignment, normalization, and attenuation correction demonstrate at rest the appearance of diminished tracer uptake in portions of the distal anterior/anterior apical segments which appear to normalize following stress. There is end systolic thickening and brightening. The gated Cardiolite study demonstrates myocardial thickening and inward wall motion. The reported LVEF is 74 %. Impression: 1. Rest and stress SPECT current nuclear imaging demonstrate myocardial perfusion changes compatible with shifting soft tissue attenuation/artifact being more prominent at rest as opposed to stress with no myocardial perfusion c hanges considered diagnostic for associated stress-induced myocardial ischemia. 2. The gated Cardiolite study reports an LVEF of 74 %. This note was generated with [employer] software. It may contain incorrect words, spelling, and punctuation that were not noted in checking the note before signing.
== END ==
PROVIDERS: PCP Preventive Medicine Occupational Medicine; Referring Provider Internal Medicine Cardiovascular Disease; Visit Provider Internal Medicine Cardiovascular Disease
DX: I25.10 Atherosclerotic heart disease of native coronary artery without angina pectoris (principal)
CPT/HCPCS: 78452; 93017; A9500; A4216; J2785

== ENCOUNTER → 2021-11-10 | Outpatient (CLI) | payer BC, SELFPAY ==
--- NOTE | 2021-11-10 07:39 | RAD_ITS ---
STUDY: X-RAY - ESOPHAGUS (BARIUM SWALLOW) WITH FLUOROSCOPY REASON FOR EXAM: Male, 76 years old. GERD TECHNIQUE: 9 view(s) of the esophagus were obtained following swallowing of barium. FLUOROSCOPY TIME (if supplied): (54 seconds) minutes/seconds COMPARISON: None. FINDINGS: There is no demonstrated esophageal foreign body. There is no demonstrated stricture or mucosal abnormality. Normal gastroesophageal junction, without a demonstrated hiatal hernia. The patient ingested a 12 mm tablet of barium without any difficulty. There is atherosclerotic calcification of the aortic arch with tortuosity of the descending aorta. Normal visualized pulmonary parenchyma. There are diffuse degenerative changes of the visualized thoracic spine. RAD/Esophagus Dual Contrast IMPRESSION: Normal plain film x-ray examination (barium swallow) of the esophagus. Electronically Signed: Pablo Galan MD at 8:31 EDT ,
== END | disposition home or self-care (01) ==
LOC: RAD 07:33
PROVIDERS: PCP Preventive Medicine Occupational Medicine; Visit Provider Otolaryngology
DX: K21.9 Gastro-esophageal reflux disease without esophagitis (principal)
CPT/HCPCS: 74221

== ENCOUNTER → 2022-11-25 | Outpatient (CLI) | payer BC, MEDICARE, SELFPAY ==
[2022-11-25 10:39] LABS: BNP,B-Type NATRIURETIC PEPTIDE 53.4 pg/mL (0-100)
[2022-11-25 10:56] LABS: Anion Gap 2 (5-15); BUN 16 mg/dL (7-18); BUN/Creat Ratio 13.4 RATIO (10-20); Calcium,Total 8.8 mg/dL (8.5-10.1); Chloride 108 mmol/L (98-107); Creatinine, Serum 1.19 mg/dL (0.70-1.30); EST Glomerular Filtration Rate 63 mL/min (>60); Est Glom Filt Rate - Afr Amer 76 mL/min (>60); Free T3 2.3 pg/mL (2.18-3.98); Glucose 96 mg/dL (74-106); Magnesium 2.3 mg/dL (1.6-2.6); Potassium 4.6 mmol/L (3.5-5.1); Sodium Level 139 mmol/L (136-145); T4 Free Direct 0.86 ng/dL (0.76-1.46); Thyroid Stim Hormone (TSH) 5.23 uIU/mL (0.358-3.74)
[2022-11-25 11:16] LABS: Absolute Neutrophil Count 3.5 X10^3/uL (2.0-7.7); Basophil# 0.05 X10^3/uL; Basophil% 0.8 % (0-1); Eosinophil# 0.33 X10^3/uL; Eosinophils% 5.5 % (0-5); Hematocrit 44.3 % (40-54); Hemoglobin 14.7 g/dL (13.0-16.5); Lymphocyte % 23.5 % (19-41); Mean Corp Hgb Conc 33.2 g/dL (32-36); Mean Corpuscular Hgb 31.4 pg (27.0-32.0); Mean Corpuscular Volume 94.7 fL (80-94); Mean Platelet Vol. 10.1 fl (6.2-12.0); Monocyte# 0.64 X10^3/uL; Monocyte% 10.7 % (0-10); NRBC Flagged by Analyzer 0 % (0-5); Neutrophil # 3.53 X10^3/uL (2.7-7.7); Neutrophil % 59.3 % (47-70); Platelet Count 224 K/mm3 (150-450); RBC Distribution Width CV 13.2 % (11.6-14.6); RBC Distribution Width SD 46.3 fl (35.1-43.9); Red Blood Count 4.68 M/mm3 (4.6-6.2)
== END | disposition home or self-care (01) ==
LOC: LAB 09:39
PROVIDERS: PCP Preventive Medicine Occupational Medicine; Referring Provider Nurse Practitioner Gerontology; Visit Provider Nurse Practitioner Gerontology
DX: R53.83 Other fatigue (principal); R06.09 Other forms of dyspnea
CPT/HCPCS: 36415; 80048; 83735; 83880; 84439; 84443; 84481; 85025

== ENCOUNTER → 2022-12-02 | Outpatient (CLI) | payer MEDICARE, SELFPAY ==
--- NOTE | 2022-12-02 13:32 | CT_ITS ---
EXAM: CT MAXILLOFACIAL WITHOUT INTRAVENOUS CONTRAST CLINICAL INDICATION: CHRONIC SINUSTITS TECHNIQUE: Helically acquired images were obtained of the face without intravenous contrast. This CT exam was performed using one or more of the following dose reduction techniques: automated exposure control, adjustment of the mA and/or kV according to patient size, and/or use of iterative reconstruction technique. COMPARISON: 01/19/2016. FINDINGS: BONES/JOINTS: Prior left occipital craniectomy. No displaced fracture. No discrete lytic or blastic abnormalities. SOFT TISSUES: Unremarkable. No focal subcutaneous swelling. No discrete fluid collections. ORBITS: Visualized globes, extraocular muscles, and retrobulbar fat are unremarkable. SINUSES: Unremarkable as visualized. Clear. MASTOID AIR CELLS: Unremarkable as visualized. Clear. DENTAL: Large cystic lesion in the left mandible measuring 4 x 1.4 cm, probable odontogenic cyst. Lesion is dehiscent anteromedially. CT/Sinus/Facial Bone IMPRESSION: No acute findings. 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 Electronically Signed: Yee Craig MD at 20:13 EDT Reading Location ID and State: [id number] / Tel , Service support ,
== END | disposition home or self-care (01) ==
PROVIDERS: PCP Preventive Medicine Occupational Medicine; Referring Provider Otolaryngology; Visit Provider Otolaryngology
DX: J32.8 Other chronic sinusitis (principal)
CPT/HCPCS: 70486

== ENCOUNTER → 2022-12-07 | Outpatient (CLI) | payer MEDICARE, SELFPAY ==
--- NOTE | 2022-12-07 06:35 | ECHOD_ITS ---
Reason For Study: Palpitations Procedure This was a 2D Doppler, Color Flow transthoracic echocardiogram. Exam performed in department. Left Ventricle Normal LV size. Left ventricular systolic function is normal. The estimated ejection fraction is 60 %. Normal diastology for age. No regional wall motion abnormalities noted. Right Ventricle Normal right ventricle. Atria The left and right atria are normal. Mitral Valve The mitral valve is structurally normal. No prolapse or stenosis seen. Mild (1+) mitral valve insufficiency. Tricuspid Valve Normal tricuspid valve. Right ventricular systolic pressure estimated to be 30 mmHg. Mild tricuspid valve insufficiency. Aortic Valve Trisinus/trileaflet aortic valve. Mild focal aortic valve calcification. There is no aortic stenosis. No aortic valve insufficiency. Pulmonic Valve The pulmonic valve is not well visualized. Mild (1+) pulmonic valve insufficiency. Great Vessels Normal aortic root. MMode/2D Measurements & Calculations LVIDd: 4.1 cm IVSd: 0.96 cm Ao root diam: 3.5 cm LVIDs: 2.5 cm LVPWd: 1.0 cm RVDd: 4.2 cm FS: 39.4 % LAV(MOD-bp): 46.3 ml LVAd ap4: 24.4 cm2 SV(MOD-sp4): 41.7 ml LAV(MOD-bp) Indexed: 23.6 ml/m2 LVLd ap4: 7.8 cm LAV(MOD-sp2): 46.3 ml EDV(MOD-sp4): 62.6 ml LAV(MOD-sp4): 44.3 ml EDV(sp4-el): 64.6 ml LVAs ap4: 12.5 cm2 LVLs ap4: 6.3 cm ESV(MOD-sp4): 20.9 ml ESV(sp4-el): 21.1 ml EF(MOD-sp4): 66.5 % EF(sp4-el): 67.3 % SV(sp4-el): 43.5 ml LA dimension(2D): 3.5 cm LA A4 area: 17.6 cm2 RA A4 area: 12.6 cm2 TAPSE: 2.3 cm Time Measurements MV dec time: 0.30 sec Doppler Measurements & Calculations MV E max zak: 64.5 cm/sec Lat Peak E' Zak: 10.5 cm/sec Med Peak E' Zak: 7.0 cm/sec MV A max zka: 92.1 cm/sec E/E' lat: 6.1 E/E' med: 9.2 MV E/A: 0.70 Ao V2 max: 169.4 cm/sec LV V1 max: 91.3 cm/sec MV dec slope: 217.0 cm/sec2 Ao max P.5 mmHg LV V1 max P.3 mmHg Ao V2 mean: 120.6 cm/sec Ao mean P.4 mmHg Ao V2 VTI: 37.6 cm PA V2 max: 120.1 cm/sec PI end-d zak: 106.3 cm/sec TR max zak: 258.1 cm/sec TR max P.6 mmHg ECHO/Echo Complete Interpretation Summary The estimated ejection fraction is 60 %. Mild (1+) mitral valve insufficiency. Mild tricuspid valve insufficiency. Ordering Physician: Pat Guzman Referring Physician: Afshin Montalvo Performed By: Daniella Grace, CESAR, RVT
--- NOTE | 2022-12-07 11:08 | STRESSREP ---
Stress Test Report Pharmacologic myocardial perfusion stress test. 77-year-old man with a history of fatigue Resting EKG demonstrates sinus rhythm with a rate of 61 bpm. Resting blood pressure is 112/62 mmHg. 0.4 mg of regadenoson was infused per usual protocol followed by rapid intravenous saline flush injection. Continuous EKG monitoring was performed. The maximum heart rate was 83 bpm which was 58% of max impacted heart rate the maximum workload was 1 metabolic equivalent. At rest there were no ST or T wave changes noted to suggest ischemia and at peak infusion nonspecific ST changes were noted which did not meet the criteria for ischemia. No clinical angina is noted. The final blood pressure was 108/58 mmHg. Myocardial perfusion protocol. 11.6 mCi of technetium 99m sestamibi was injected at rest. 0.4 mg of regadenoson was infused per usual protocol. At peak infusion 34.5 mCi of technetium 99m sestamibi was injected stress images were obtained stress and rest images were reconstructed and compared in the short axis vertical long and horizontal long axis. Gated images were also obtained. Perfusion SPECT analysis: Review of the stress images demonstrate normal uptake of tracer noted in all areas of the myocardium. The resting images similar demonstrated normal uptake of tracer noted in all areas of the myocardium. No areas of reversibility are noted to suggest ischemia and no previous infarct is noted. Gated SPECT analysis: The gated ejection fraction is 77%. Conclusion: Normal pharmacologic myocardial perfusion stress test. Preserved ejection fraction.
== END | disposition home or self-care (01) ==
LOC: PSN 06:33
PROVIDERS: PCP Preventive Medicine Occupational Medicine; Referring Provider Nurse Practitioner Gerontology; Visit Provider Nurse Practitioner Gerontology
DX: R06.09 Other forms of dyspnea (principal); R00.2 Palpitations
CPT/HCPCS: 78452; 93017; 93225; 93226; 93306; A9500; J7120; A4216; J2785

== ENCOUNTER → 2023-10-25 | Outpatient (CLI) | payer MEDICARE, SELFPAY ==
[2023-10-25 09:17] LABS: Absolute Lymphocyte Count 0.94 X10^3/uL (0.83-4.51); Absolute Neutrophil Count 2.7 X10^3/uL (2.0-7.7); Basophil# 0.04 X10^3/uL; Basophil% 0.9 % (0-1); Eosinophil# 0.23 X10^3/uL; Eosinophils% 5.2 % (0-5); Hematocrit 41.8 % (40-54); Hemoglobin 13.9 g/dL (13.0-16.5); Lymphocyte # 0.94 X10^3/ul (0.83-4.51); Lymphocyte % 21.3 % (19-41); Mean Corp Hgb Conc 33.3 g/dL (32-36); Mean Corpuscular Volume 93.3 fL (80-94); Mean Platelet Vol. 10.1 fl (6.2-12.0); Monocyte# 0.46 X10^3/uL; Monocyte% 10.4 % (0-10); NRBC Flagged by Analyzer 0 % (0-5); Neutrophil # 2.73 X10^3/uL (2.7-7.7); Platelet Count 223 K/mm3 (150-450); RBC Distribution Width CV 13.2 % (11.6-14.6); Red Blood Count 4.48 M/mm3 (4.6-6.2); White Blood Count 4.4 K/mm3 (4.4-11.0)
[2023-10-25 10:39] LABS: ALB/GLOB Ratio 0.9 RATIO (0.9-2.4); AST(SGOT) 28 U/L (15-37); Alanine Aminotransfer ALT/SGPT 25 U/L (16-61); Albumin, Serum 3.2 g/dL (3.2-5.0); Alkaline Phosphatase 67 U/L (45-117); Anion Gap 5 (5-15); BUN 22 mg/dL (7-18); BUN/Creat Ratio 22.3 RATIO (10-20); Calcium,Total 8.6 mg/dL (8.5-10.1); Chloride 109 mmol/L (98-107); Cholesterol 152 mg/dL (200); Creatinine, Serum 0.99 mg/dL (0.70-1.30); EST Glomerular Filtration Rate 78 mL/min (>60); Est Glom Filt Rate - Afr Amer 94 mL/min (>60); Globulin 3.5 g/dL (2.2-4.2); Glucose 94 mg/dL (74-106); High Density Lipoprotein 48 mg/dL; Potassium 4.2 mmol/L (3.5-5.1); Protein, Total 6.7 g/dL (6.4-8.2); Sodium Level 139 mmol/L (136-145); Thyroid Stim Hormone (TSH) 5.56 uIU/mL (0.358-3.74); Triglycerides 72 mg/dL; Very Low Density Lipoprotein 14 mg/dL (5-40)
== END | disposition home or self-care (01) ==
LOC: LAB 07:47
PROVIDERS: PCP Preventive Medicine Occupational Medicine; Referring Provider Physician Assistant Medical; Visit Provider Physician Assistant Medical
DX: R42 Dizziness and giddiness (principal); R53.83 Other fatigue; E78.5 Hyperlipidemia, unspecified; I25.10 Atherosclerotic heart disease of native coronary artery without angina pectoris; R00.2 Palpitations; R06.09 Other forms of dyspnea
CPT/HCPCS: 36415; 80053; 80061; 83880; 84443; 85025

== ENCOUNTER → 2023-10-31 | Outpatient (CLI) | payer MEDICARE, SELFPAY ==
[2023-10-31 11:57] LABS: PSA,Total - Annual Screen 1.55 ng/mL (0.00-4.00)
== END | disposition home or self-care (01) ==
LOC: LAB 10:35
PROVIDERS: PCP Preventive Medicine Occupational Medicine; Referring Provider Nurse Practitioner; Visit Provider Nurse Practitioner
DX: Z12.5 Encounter for screening for malignant neoplasm of prostate (principal)
CPT/HCPCS: 36415; 84153; G0103

== ENCOUNTER → 2023-11-01 | Outpatient (CLI) | payer MEDICARE, SELFPAY | END | disposition home or self-care (01) | PROVIDERS: PCP Preventive Medicine Occupational Medicine; Referring Provider Physician Assistant Medical; Visit Provider Physician Assistant Medical | DX: R07.89 Other chest pain (principal); R42 Dizziness and giddiness; R53.83 Other fatigue; R00.2 Palpitations; E03.9 Hypothyroidism, unspecified | CPT/HCPCS: 93225; 93226 ==

== ENCOUNTER → 2023-11-20 | Outpatient (CLI) | payer MEDICARE, SELFPAY ==
--- NOTE | 2023-11-20 06:24 | CDU_ITS ---
Reason For Study: Dizziness Rt. Velocities/BP Lt. Velocities/BP Prox CCA 74/15 cm/sec. Prox CCA 60/12 cm/sec. Mid CCA 57/12 cm/sec. Mid CCA 70/11 cm/sec. Dist CCA 54/15 cm/sec. Dist CCA 69/11 cm/sec. Prox ICA 55/18 cm/sec. Prox ICA 52/17 cm/sec. Mid ICA 67/22 cm/sec. Mid ICA 65/21 cm/sec. Dist ICA 66/22 cm/sec. Dist ICA 42/15 cm/sec. Rt. ICA/CCA = 1.2. Lt. ICA/CCA = 0.9. Prox ECA 85/11 cm/sec. Prox ECA 75/9 cm/sec. Rt. Vert. 54/17 cm/sec. Lt. Vert. 56/15 cm/sec. Right Extracranial There is heterogeneous, irregular atherosclerotic plaque noted in the right common carotid artery. There is heterogeneous, irregular atherosclerotic plaque noted in the right internal carotid artery. There is intimal thickening but no significant atherosclerotic plaque noted in the right external carotid artery. Antegrade flow is noted in the right vertebral artery. Left Extracranial There is heterogeneous, irregular atherosclerotic plaque noted in the left common carotid artery. There is heterogeneous, irregular atherosclerotic plaque noted in the left internal carotid artery. There is heterogeneous, irregular atherosclerotic plaque noted in the left external carotid artery. Antegrade flow is noted in the left vertebral artery. Procedure Carotid Duplex 15053. This is a Carotid Duplex examination using B-mode, color flow and specral Doppler. Exam performed in department. VL/Carotid Duplex Ultrasound Interpretation Summary Irregular plaque with mild shadowing at the proximal right internal carotid art rose mary with less than 50% stenosis Less than 50% stenosis right external carotid artery Minimal irregular plaque at the proximal left internal carotid artery with less than 50% stenosis Less than 50% stenosis left external carotid artery Patent and antegrade vertebral arteries bilaterally Ordering Physician: Mccarty, Linh M Referring Physician: Afshin Montalvo By: Daniella Grace, CESAR, RVT
--- NOTE | 2023-11-20 10:14 | STRESSREP_ITS ---
Stress Test Report Date: 11/20/2023 Procedure: Pharmacologic stress nuclear imaging study Indications: Dyspnea on exertion Consent: Per the patient Procedure: The patient underwent pharmacologic (Regadenoson 0.4mg ) evaluation with a peak heart rate of 83 beats per minute (59%predicted maximal heart rate) and a peak blood pressure of 128/64 mmHg. The baseline ECG demonstrated sinus rhythm. The peak pharmacologic ECG demonstrated no ischemic changes. There were no cardiac dysrhythmias pretest, during pharmacologic infusion, or recovery. There was no complaint of chest discomfort during pharmacologic infusion or recovery. The patient was injected with 13.5 millicuries of technetium 99m Cardiolite and subsequently rest SPECT Cardiolite nuclear imaging was obtained in the horizontal long, vertical long, and short axis views. The patient underwent pharmacologic (Regadenoson) evaluation. The patient was injected with 42.9 millicuries of technetium 99m Cardiolite and subsequently stress SPECT Cardiolite nuclear imaging was obtained in the horizontal long, vertical long, and short axis views. A gated Cardiolite study at peak stress was obtained. The examination was stopped secondary to completion of protocol. Rest and stress SPECT Cardiolite nuclear imaging status post realignment, normalization, and attenuation correction demonstrate no fixed or reversible perfusion defects. There is end systolic thickening and brightening. The gated Cardiolite study demonstrates myocardial thickening and inward wall motion. The reported LVEF is 64%. Impression: 1. Pharmacologic (Regadenoson) evaluation 2. Peak pharmacologic ECG with no ischemic changes. 3. There were no cardiac dysrhythmias pretest, during pharmacologic infusion, or recovery. 5. Rest and stress SPECT Cardiolite nuclear imaging demonstrate relative uniform tracer uptake and myocardial perfusion appearing within normal limits. 6. The gated Cardiolite study reports an LVEF of 64%. This note was generated with [employer] software. It may contain incorrect words, spelling, and punctuation that were not noted in checking the note before signing.
== END | disposition home or self-care (01) ==
LOC: CVS 06:20
PROVIDERS: PCP Preventive Medicine Occupational Medicine; Referring Provider Physician Assistant Medical; Visit Provider Physician Assistant Medical
DX: R06.09 Other forms of dyspnea (principal); R07.89 Other chest pain; R42 Dizziness and giddiness; R53.83 Other fatigue; R00.2 Palpitations; I10 Essential (primary) hypertension; E78.5 Hyperlipidemia, unspecified; I25.10 Atherosclerotic heart disease of native coronary artery without angina pectoris
CPT/HCPCS: 78452; 93017; 93880; A9500; A4216; J2785

== ENCOUNTER → 2025-01-21 | Outpatient (CLI) | payer MEDICARE, SELFPAY ==
--- NOTE | 2025-01-21 09:00 | RAD_ITS ---
EXAM: Single and double contrast esophagram CLINICAL HISTORY: Gastroesophageal reflux. Dysphagia. COMPARISON: None. TECHNIQUE: Single and double contrast esophagram. Dose: 41.91 mGy. Fluoroscopy time: 149 seconds. FINDINGS: Visually, the swallowing mechanism was unremarkable. No area of persistent esophageal narrowing is seen. No mucosal changes are seen. Recurrent spasm of the mid to distal esophagus was seen. A very small sliding-type hiatal hernia is seen. Gastroesophageal reflux of the level of the proximal thoracic esophagus was noted. Limited imaging of the stomach and duodenum shows no abnormality. Mild delay in passage of a 13 mm barium tablet into the stomach is seen, presumably due to the presence of spasm, as visually, the esophagogastric junction was widely patent on earlier images. RAD/Esophagus Dual Contrast IMPRESSION: 1. Recurrent spasm of the mid to distal esophagus. 2. Very small sliding-type hiatal hernia. 3. Gastroesophageal reflux. Reading Location: [place] [id number]
== END | disposition home or self-care (01) ==
PROVIDERS: Referring Provider Otolaryngology; Visit Provider Otolaryngology
DX: K21.9 Gastro-esophageal reflux disease without esophagitis (principal)
CPT/HCPCS: 74221